=== PATIENT | female | born 1940 | race Caucasian/White ===

== ENCOUNTER 2016-11-04 17:07 | Inpatient (IN) | payer OTHER ==
[~2016-11-04] VITALS: Ht 157.5 cm; Wt 144.7 kg
--- NOTE | ~2016-11-04 | EEG ---
[facility] [place] [address] ELECTROENCEPHALOGRAM Name: CHLOE CORMIER Room #: 463-P [facility] IN M.R.#: [id number] Admission: 11/04/16 Attend Phys: Joss Farley MD Discharge: 11/07/16 Date of : 44 Report #: [id number] THIS REPORT FOR: //name// CC: [facility] physician/PCP Joss Farley DATE OF SERVICE: 11/05/2016 This patient is being evaluated for the possibility of encephalopathy. EEG was done by placing electrodes by standard 10-20 system of electrode placement. Both referential and sequential montages were used for recording. Background activity in this patient's EEG is about 8 Hz and 25 microvolt. This background activity is intermixed with theta range slowing. The patient went to sleep that is associated with bilaterally symmetrical sleep spindle and vertex sharp waves. Photic stimulation was not carried out because of technical reason. IMPRESSION: This is a moderately abnormal EEG because it is intermixed with theta range slowing. That is a nonspecific abnormality, which can occur with encephalopathy, effect of psychotropic medication, dementia, etc. There is a nonspecific finding and therefore, clinical correlation is recommended. Thank you very much for this referral. <ELECTRONICALLY SIGNED> By: Earnest Horton MD 11/07/16 [id number] Earnest Horton MD /nt
--- NOTE | ~2016-11-04 | 2DMMODE ---
[facility] [place] [address] 2 D/M-MODE ECHOCARDIOGRAM Name: CHLOE CORMIER Room #: 463-P ADM IN .R.#: [id number] Admission: 11/04/16 Attend Phys: Xin Darnell Discharge: Date of : 44 Date of Service: 11/05/16 1215 Report #: [id number] THIS REPORT FOR: //name// APPROVED REPORT EXAM: Comprehensive 2D, Doppler, and color-flow Echocardiogram Patient Location: Bedside/Room 463 Blood Pressure: 158/72 mmHg HR: 90 bpm Rhythm: NSR Other Information Study Quality: Fair Technically limited study due to morbid obesity, limited mobility. Poor apical window. Not all measurements taken.. Indications CVA/TIA Hx: morbid obesity, DM, HTN Echo Enhancing Agent Indication: Rule out Shunt Agent/Amount Used: Agitated Saline cc 2D Dimensions LVEF(%): 54.31 (>50%) IVSd: 11.81 (7-11mm) LVOT Diam: 18.68 (18-24mm) LVDd: 38.10 mm PWd: 12.00 (7-11mm) Ascending Aorta: 31.84 mm LVDs: 27.59 (25-40mm) Aortic Root: 32.00 mm Banks's LVEF: 54.31 % Aortic Valve AoV Peak Saurav.: 1.62 m/s AO Peak Gr.: 10.44 mmHg LV Max P.70 mmHg LV Max: 1.29 m/s Mitral Valve MV PHT: 44.19 ms MV E Max Saurav.: 0.97 m/s E/A Ratio: 0.9 MV A Saurav.: 1.14 m/s MV Decel. Time: 152.39 ms [facility] [address] [place] [address] 2 D/M-MODE ECHOCARDIOGRAM Name: CHLOE CORMIER Isa Room #: 463-P [facility] IN ..#: [id number] Admission: 11/04/16 Attend Phys: Xin Darnell Discharge: Date of : 44 Date of Service: 11/05/16 1215 Report #: [id number] TDI E/Lateral E': 14.00 E/Medial E': 17.00 Pulmonary Valve PV Peak Saurav.: 1.23 m/s PV Peak Gr.: 6.06 mmHg Tricuspid Valve TR Peak Saurav.: 2.89 m/s TR Peak Gr.: 33.46 mmHg Left Ventricle The left ventricle is normal size. There is normal LV segmental wall motion. There is normal left ventricular wall thickness. Left ventricular systolic function is normal. LVEF is 55-60%. Grade I - abnormal relaxation pattern. Right Ventricle Right ventricle is not well visualized but appears grossly normal Atria The left atrium size is normal. Injection of agitated saline was suboptimal but no interatrial shunt was noticed. Right atrium is not well visualized but appears grossly normal. Aortic Valve The aortic valve is grossly normal in structure. No aortic regurgitation is present. There is no aortic valvular stenosis. Mitral Valve The mitral valve is normal in structure. Trace mitral regurgitation. Tricuspid Valve The tricuspid valve is normal in structure. There is mild tricuspid regurgitation. The right atrial pressure is estimated at mmHg. Right ventricular systolic pressure is estimated at 33mmHg+ plus the right atrial pressure. There is mild pulmonary hypertension. Pulmonic Valve Pulmonic valve is not well visualized. There is no pulmonic valvular regurgitation noted [employer] [facility] [address] [place] [address] 2 D/M-MODE ECHOCARDIOGRAM Name: CHLOE CORMIER Room #: 463-P ADM IN M.R.#: [id number] Admission: 11/04/16 Attend Phys: Xin Darnell Discharge: Date of : 44 Date of Service: 11/05/16 1215 Report #: [id number] The aortic root is normal in size. The ascending aorta is normal in size. IVC is not well visualized. Pericardium There is no pericardial effusion. <Conclusion> Technically limited study Left ventricular global and regional systolic function is normal. There is normal LV segmental wall motion. LVEF 55-60%. Grade I - diastolic dysfunction. The aortic valve is grossly normal in structure. No aortic regurgitation or stenosis. The mitral valve is normal in structure. No mitral insufficiency Pulmonary artery pressure could not be ascertained. There is no pericardial effusion. <ELECTRONICALLY SIGNED> By: Orion Avila MD, FACC 11/05/161214 14 14 Orion Avila MD, FACC /INF
[2016-11-04 18:54] VITALS: BP 148/63
[2016-11-04 20:40] LABS: HEMATOCRIT 36.2 % (37.0-47.0); MCV 84.8 fL (80.0-100.0); RBC 4.27 mil/uL (4.20-5.00); RDW 14.2 % (10.5-14.5); WBC 7.6 thou/uL (4.0-11.0)
[2016-11-04 20:50] LABS: CALCIUM 8.5 mg/dL (8.5-10.1); CREATININE 0.6 mg/dL (0.6-1.3); POTASSIUM 3.2 mmol/L (3.5-5.1)
[2016-11-04 20:54] LABS: ALBUMIN 2.5 g/dL (3.4-5.0); TOTAL BILIRUBIN 0.3 mg/dL (<0.1-1.0); TOTAL PROTEIN 6.5 g/dL (6.4-8.2)
[2016-11-05] VITALS (7 sets, daily range): BP systolic 148–185; BP diastolic 56–81
[2016-11-05] MEDS ORDERED: PIOGLITAZONE15 MG PO (01:07)
[2016-11-05] MEDS ORDERED: AMARYL2 MG PO (01:08)
[2016-11-05] MEDS ORDERED: ASPIR 8181 M1 PO (01:09)
[2016-11-05] MEDS ORDERED: UNICOMPLEX M TA1 TA1 PO (01:10)
[2016-11-05] MEDS ORDERED: OXYBUTYNIN 5 MG5 M2 PO (01:12)
[2016-11-05] MEDS ORDERED: PROZAC10 MG PO (01:13)
[2016-11-05] MEDS ORDERED: LEVOTHYROXIN0.025 MG PO (01:13)
[2016-11-05] MEDS ORDERED: VITAMIN D1000 UNI1 PO (01:14)
[2016-11-05] MEDS ORDERED: SIMVASTATIN40 MG PO (01:16)
[2016-11-05] MEDS ORDERED: METFORMIN HCL500 MG PO (01:16)
[2016-11-05] MEDS ORDERED: LASIX 40 MG TAB40 MG PO (01:17)
[2016-11-05] MEDS ORDERED: PEPCID20 MG PO (01:17)
[2016-11-05] MEDS ORDERED: POTASSIUM20 PO (01:18)
[2016-11-05] MEDS ORDERED: LYRICA 75 MG CA75 MG PO (01:19)
[2016-11-05] MEDS ORDERED: AMBIEN5 MG PO (01:21)
[2016-11-05] MEDS ORDERED: ATIVAN0.5 MG PO (01:22)
[2016-11-05] MEDS ORDERED: DOXEPIN HCL25 MG PO (01:23)
[2016-11-05] MEDS ORDERED: MILK OF MA2400 MG/10 PO (01:24)
[2016-11-05] MEDS ORDERED: TIGAN300 MG PO (01:26)
[2016-11-05] MEDS ORDERED: HYDROCODONE-APA1 TA1 PO (01:26)
[2016-11-05] MEDS ORDERED: APAP500 PO (01:27)
[2016-11-05 03:53] LABS: URINE BILIRUBIN 2+ (Negative); URINE BLOOD NEGATIVE (Negative); URINE COLOR YELLOW; URINE GLUCOSE-RANDOM* NEGATIVE (Negative); URINE KETONES 3+ (Negative); URINE LEUKOCYTES-REFLEX NEGATIVE (Negative); URINE PROTEIN (DIPSTICK) TRACE (Negative); URINE SPECIFIC GRAVITY >= 1.030 (1.003-1.035); URINE UROBILINOGEN 0.2 E.U./dl (0.2-1.0)
[2016-11-05 04:14] LABS: ICTOTEST (BILI CONFIRMATORY) Positive (Negative)
[2016-11-05 06:28] LABS: TSH 1.348 uIU/mL (0.358-3.740)
[2016-11-05 09:29] LABS: CHOLESTEROL 138 mg/dL (<200); HDL CHOLESTEROL 44 mg/dL (>40); LDL CHOLESTEROL 71 mg/dL (<100); TC:HDL 3.1 Ratio (Not establshd); TRIGLYCERIDE 118 mg/dL (<150); VLDL 24 mg/dL (<40)
[2016-11-05] MEDS ORDERED: ARTIFICIAL TEA1 EACH OP (12:10)
[2016-11-06] VITALS (8 sets, daily range): BP systolic 158–187; BP diastolic 59–85
[2016-11-06 05:18] LABS: HEMATOCRIT 34.7 % (37.0-47.0); HEMOGLOBIN 11.4 gm/dL (12.0-15.0); MCH 27.8 pg (26.0-34.0); MCV 84.3 fL (80.0-100.0); RBC 4.11 mil/uL (4.20-5.00); RDW 14.3 % (10.5-14.5); WBC 6.8 thou/uL (4.0-11.0)
[2016-11-06 05:49] LABS: CALCIUM 8.3 mg/dL (8.5-10.1); CREATININE 0.6 mg/dL (0.6-1.3)
[2016-11-06 05:57] LABS: POTASSIUM 2.7 mmol/L (3.5-5.1)
[2016-11-07 03:39] VITALS: BP 151/82
[2016-11-07] MEDS ORDERED: AMBIEN 10 MG TA10 MG PO (11:04)
[2016-11-07] MEDS ORDERED: LOPRESSOR25 PO (11:04)
[2016-11-07] MEDS ORDERED: POTASSIUM20 PO (11:06)
[2016-11-07] MEDS ORDERED: LASIX 40 MG TAB40 MG PO (11:06)
[2016-11-07 11:35] VITALS: BP 201/80
[2016-11-07 12:37] VITALS: BP 204/99
[2016-11-07 13:43] VITALS: BP 182/76
[2016-11-07 15:37] VITALS: BP 166/74
== END 2016-11-07 15:51 | DRG 92 ==
LOC: 4W 17:07
PROVIDERS: Family Medicine; Nurse Practitioner; Psychiatry & Neurology Neurology
DX: G92 Toxic encephalopathy (principal); N39.0 Urinary tract infection, site not specified; Z68.43 Body mass index [BMI] 50.0-59.9, adult; E44.1 Mild protein-calorie malnutrition; E11.9 Type 2 diabetes mellitus without complications; E66.01 Morbid (severe) obesity due to excess calories; I10 Essential (primary) hypertension; E87.6 Hypokalemia; E03.9 Hypothyroidism, unspecified; Z79.82 Long term (current) use of aspirin; Z79.899 Other long term (current) drug therapy; Z88.2 Allergy status to sulfonamides
CPT/HCPCS: 10045